=== PATIENT | female | born 1990 | race Hispanic/Latino ===

== ENCOUNTER 2017-05-26 15:31 | Emergency (ER) | payer BC ==
[2017-05-26 15:36] VITALS: BP 119/76; PULSE 87; RESP 18; TEMP 98.4; O2SAT 100
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
== END 2017-05-26 16:30 | disposition home or self-care (01) ==
LOC: C.ER 15:31
DX: S00.03XA Contusion of scalp, initial encounter (principal); W22.8XXA Striking against or struck by other objects, initial encounter; Y92.89 Other specified places as the place of occurrence of the external cause